=== PATIENT | male | born 1975 | race Caucasian/White ===

== ENCOUNTER 2024-07-01 02:37 | Emergency (ER) | payer SELFPAY ==
[2024-07-01 02:44] VITALS: BP 123/96
[2024-07-01 03:02] VITALS: BMI 37.6
[2024-07-01] MEDS: TORADOL 60 MG IM (04:17)
[2024-07-01] MEDS: VALIUM INJECTION 10 MG IM (04:17)
[2024-07-01 05:27] VITALS: BP 141/87
--- NOTE | 2024-07-01 05:37 | ED.GENMED ---
History of Present Illness
General
Chief Complaint: Back Pain
Source: patient
Exam Limitations: none
Time Seen by Provider: 07/01/24 04:00
Nursing documentation reviewed up to this point in time: agreed with
History of Present Illness
History of Present Illness:
This is a 48-year-old gentleman with no significant past medical history who complains of left low back pain that began 5 days ago after he inadvertently 'tweaked' his back while pulling a ladder while painting a house. He is continue to work/pain
throughout the week with increased pain throughout the week, more so tonight when he was able to lie down to bed but then could not get up out of bed resulting in a call to EMS. Paramedics were able to get him up and stand him and he has ambulated
from the ambulance to the exam room. He does admit to rare muscle spasms in his back but no history of sciatica nor disc disease. No previous evaluations of low back pain. He denies radiation of the pain, no leg pain, no weakness nor numbness, no
abdominal pain, no difficulty moving his bowels or bladder. He has been taking aspirin sporadically throughout the week. He has not had fever nor chills. No rash.
He takes no medicines on a daily basis.
Past History
Past History
ED Past Medical History: Psychiatric
ED Past Surgical History: Orthopedic (Left ankle), Tonsilectomy and Other (Hernia repair)
Social History
Tobacco: Smoker
Alcohol: Occasional
Drug: None
Personal:
Living: with family (lives with dad)
Employment: Employed (self-employed)
Family History
Family History: Other (Noncontributory)
Phy Exam
Physical Exam
Physical Exam:
GENERAL: 48-year-old quite tall gentleman appears his stated age. Standing and pacing about exam room. Pleasant and appears in no acute distress.
EYE: anicteric
NECK: Supple, nontender, no meningismus, no significant adenopathy.
ENT: oral mucosa is moist. No rhinorrhea.
CARDIAC: Regular rate and rhythm. no murmur.
LUNGS: Clear breath sounds bilaterally, no acute respiratory distress, no wheezes/rales/rhonchi
ABDOMEN: Soft, nondistended, without focal tenderness, no r/g, no cvat. normoactive BS.
BACK: No midline bony tenderness. Moderate paravertebral muscle spasm left proximal to mid lumbar spine with moderate local tenderness to palpation. Moderately restricted lumbar range of motion related to pain.
NEUROLOGICAL: Alert and oriented x3, no focal neuro deficits. Gait is beatty and steady.
SKIN: Warm and dry, normal color, skin intact. No rash.
MUSCULOSKELETAL: No C/C/E. peripheral pulses are full and equal b/l. No palpable tenderness.
PSYCH: Normal and appropriate interaction.
Course
Orders/Labs/Results
Orders:
Orders
07/01/24 04:05
Ketorolac [Toradol] 60 mg IM NOW STA
diazePAM [Valium Injection] 10 mg IM NOW STA
Vital Signs
Initial and Last Documented VS:
Initial Vital Signs
Temp Pulse Resp BP Pulse Ox
98.1 F 89 20 123/96 99
07/01/24 02:44 07/01/24 02:44 07/01/24 02:44 07/01/24 02:44 07/01/24 02:44
Last Documented Vital Signs
Temp Pulse Resp BP Pulse Ox
98.1 F 96 20 141/87 96
07/01/24 02:44 07/01/24 05:27 07/01/24 02:44 07/01/24 05:27 07/01/24 05:27
MDM/Problems Addressed
Differential Diagnosis Includes:
Patient presents with 5-day history of left low back pain, nonradiating and admits to straining injury while lifting and moving a tall ladder.
History and exam consistent with acute left lumbar sprain/strain.
No radicular signs or symptoms, no focal neurodeficits, no abdominal pain nor other associated symptoms.
He did not suffer a fall, no midline bony tenderness thus no indication for radiology studies.
Will medicate for pain and muscle spasm with Toradol and Valium. Will continue to observe.
*Pulse Oximetry
Patient hypoxic: no
*Critical Care Note
Total Time (30-74mins, 75-104mins- exclusive of procedures): Not Applicable
Update Note
Update Note:
07/01/2024 0542 AM
Patient feeling markedly improved after IM dose of Toradol and Valium. Has gotten himself dressed. Eager to be discharged to home.
He continues to have no abdominal pain, no radicular signs or symptoms, no neurodeficits.
Will discharge to home with prescription for diclofenac for pain as well as Flexeril for as needed muscle spasm.
Recommend supportive measures, local heat, avoid lifting/bending.
Prompt follow-up with PCP for recheck.
ED Attending Note
-
Portions of this chart may have been created with voice recognition software.� Occasional wrong word or��sound alike� substitutions may have occurred due to the inherent limitations of voice recognition software.
Discharge Plan
Departure
Patient Disposition: Home (Routine Discharge)
Date of Disposition: 07/01/24
Time of Disposition: 05:37
Patient with high blood pressure during this ER visit?: No
Condition: Good
Discharge Problem:
Acute left lumbar muscle strain
Instructions: Low Back Pain (DC)
Prescriptions:
New
cyclobenzaprine 10 mg tablet
10 mg PO BIDPRN PRN (Reason: muscle spasm) Qty: 20 0RF
diclofenac sodium 75 mg tablet,delayed release (DR/EC)
75 mg PO BID PRN (Reason: pain) Qty: 30 0RF
Referrals:
NONE,* [Family Provider] -
Activity Restrictions/Additional Instructions:
Over the next week or 2, take it easy. No bending at the waist, no lifting.
Apply local heat to your left low back.
You have been prescribed 2 medications, 1 is diclofenac to take twice daily as needed for pain. The other is cyclobenzaprine, a muscle relaxer to take twice daily as needed for muscle spasm. You can take both of these together but the
cyclobenzaprine may make you mildly tired.
Follow-up with your family doctor this week for recheck.
Interventions
Interventions:
*Risk Screen - Suicide Last Done: 07/01/24 02:44
*General Assessment Last Done: 07/01/24 03:03
*Neglect/Abuse Screening Last Done: 07/01/24 02:44
ED- Fall Risk Assessment Last Done: 07/01/24 02:58
*ED COVID-19 Vaccine History Last Done: 07/01/24 02:44
ED-Musculoskeletal Assessment Last Done: 07/01/24 02:58
Discharge Date and Time
Print Language: IRANIAN
== END 2024-07-01 05:50 | disposition home or self-care (01) ==
LOC: EMR 02:37
PROVIDERS: EMERGENCY PHYSICIAN Emergency Medicine
DX: S39.012A Strain of muscle, fascia and tendon of lower back, initial encounter (principal); X58.XXXA Exposure to other specified factors, initial encounter; F17.200 Nicotine dependence, unspecified, uncomplicated
CPT/HCPCS: 99283; 96372

== ENCOUNTER 2025-02-05 02:43 | Emergency (ER) | payer OTHER, SELFPAY ==
[2025-02-05 02:45] VITALS: BP 135/76
[2025-02-05 03:23] VITALS: BMI 33.1
[2025-02-05 04:33] LABS: % Basophils 0.7 % (0-2); % Eosinophils 9.6 % (0-6); % Immature Granulocytes 0.1 % (0-0.5); % Lymphocytes 35.6 % (20.5-51.1); % Monocytes 9.6 % (1.7-9.3); % Neutrophils 44.4 % (42.2-75.2); Absolute Basophils 0.1 10^3/uL (0-0.2); Absolute Eosinophils 0.7 10^3/uL (0-0.7); Absolute Lymphocytes 2.4 10^3/uL (1.2-3.4); Absolute Monocytes 0.7 10^3/uL (0.1-0.6); Hematocrit 35.2 % (39.0-52.0); Hemoglobin 11.9 g/dL (13.0-18.0); Mean Corp Hgb Conc. 33.8 g/dL (33.0-37.0); Mean Corpuscular Volume 88.7 fL (80.0-94.0); Mean Platelet Volume 10.5 fL (7.4-10.4); Nucleated Red Blood Cells % 0 % (-); Platelet Count 222 10^3/uL (130-400); Red Blood Cell Count 3.97 10^6/uL (4.70-6.10); Red Cell Dist. Width 13.8 % (11.5-14.5); White Blood Cell Count 6.8 10^3/uL (4.8-10.8)
[2025-02-05 04:56] LABS: ALT (SGPT) 52 U/L (0-50); AST (SGOT) 52 U/L (17-59); Alkaline Phosphatase 74 U/L (38-126); Blood Urea Nitrogen 26 mg/dl (9-20); Calcium 8.8 mg/dl (8.4-10.2); Carbon Dioxide 22 mmol/L (22-30); Chloride 114 mmol/L (98-107); Creatine Phosphokinase 1322 U/L (55-170); Estimated Creatinine Clearance > 125 ml/min; Glucose 95 mg/dl (70-99); Potassium 4.2 mmol/L (3.5-5.1); Sodium 143 mmol/L (135-145); Total Bilirubin 0.5 mg/dl (0.2-1.3); Total Protein 6.6 g/dl (6.3-8.2); eGFR > 60.00
[2025-02-05 05:12] LABS: Amphetamines Positive (Negative); Barbiturates Negative (Negative); Benzodiazepines Negative (Negative); Buprenorphine Negative (Negative); Cocaine Negative (Negative); Marijuana Negative (Negative); Methadone Negative (Negative); Methamphetamines Positive (Negative); Opiates Negative (Negative); Phencyclidine Negative (Negative); Tricyclic Antidepressants Negative (Negative)
--- NOTE | 2025-02-05 05:38 | ED.GENMED ---
History of Present Illness
General
Chief Complaint: Numbness
Time Seen by Provider: 02/05/25 03:23
History of Present Illness
History of Present Illness:
49-year-old male without reported past medical history presenting to the emergency department for multiple complaints. Patient reports for the past several weeks he has been having pain in his extremities, feels tightness. Also feels some
generalized weakness. He feels numbness in his heels and sometimes at his fingertips. Denies fall or trauma. 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 Denies fever. Denies back pain. Denies bowel or bladder issues. Denies
headache or visual changes. Denies drug or alcohol abuse. He came to the hospital tonight because his symptoms are worse when he is trying to sleep, has difficulty finding position of comfort. Denies additional acute medical complaints
Past History
Past History
ED Past Medical History: Psychiatric
ED Past Surgical History: Orthopedic (Left ankle), Tonsilectomy and Other (Hernia repair)
Social History
Tobacco: Smoker
Alcohol: Occasional
Drug: None
Personal:
Living: with family (lives with dad)
Employment: Employed (self-employed)
Family History
Family History: Other (Noncontributory)
Phy Exam
Physical Exam
Physical Exam:
General: No acute distress, fidgety
HEENT: protecting airway
Neck: appears supple
CV: Normal heart rate, regular rhythm
Resp: No accessory muscle use, no increased work of breathing, lungs clear to auscultation bilaterally
Abd: Soft and non-distended, no tenderness to palpation
Extremities: No deformities, no swelling, no erythema, pulses and sensation intact. Mild tenderness to palpation to the hands without deformity or swelling.
Neuro: alert, no focal neurologic deficit
: deferred
Rectal: deferred
Psych: Normal affect
Skin: Intact
Course
Orders/Labs/Results
Orders:
Orders
02/05/25 04:14
CT Head W/o Iv Contrast Urgent
Comment:
Reason For Exam: diffuse paresthesias
02/05/25 04:26
CPK [Creatine Phosphokinase] Urgent
Complete Blood Count/With Diff Urgent
Comprehensive Metabolic Panel Urgent
02/05/25 04:47
Fentanyl, Urine Urgent
Urine Drug Abuse Screen Urgent
Date Specimen was Collected: 02/05/25
Time Specimen was Collected: 04:40
Abnormal Lab Results
02/05/25 02/05/25
04:26 04:47
RBC 3.97 L 10^6/uL
(4.70-6.10)
Hgb 11.9 L g/dL
(13.0-18.0)
Hct 35.2 L %
(39.0-52.0)
MPV 10.5 H fL
(7.4-10.4)
Absolute Monos (auto) 0.7 H 10^3/uL
(0.1-0.6)
Monocytes % 9.6 H %
(1.7-9.3)
Eosinophils % 9.6 H %
(0-6)
Chloride 114 H mmol/L
(98-107)
BUN 26 H mg/dl
(9-20)
ALT 52 H U/L
(0-50)
Creatine Kinase 1322 H U/L
(55-170)
Ur Amphetamines Screen Positive H
(Negative)
U Methamphetamines Scrn Positive H
(Negative)
02/05/25 04:26
02/05/25 04:26
Vital Signs
Initial and Last Documented VS:
Initial Vital Signs
Temp Pulse Resp BP Pulse Ox
98.4 F 94 20 135/76 100
02/05/25 02:45 02/05/25 02:45 02/05/25 02:45 02/05/25 02:45 02/05/25 02:45
Last Documented Vital Signs
Temp Pulse Resp BP Pulse Ox
98.4 F 94 20 135/76 100
02/05/25 02:45 02/05/25 02:45 02/05/25 02:45 02/05/25 02:45 02/05/25 02:45
MDM/Problems Addressed
MDM/Problems Addressed:
49-year-old male without reported past medical history presenting for pain to his extremities and reported numbness provide vital signs on arrival are normal.
On exam patient is resting comfortably, no acute distress, however is very fidgety, speaking very fast with a strange affect. Patient denying any drugs or alcohol at this time. Notes that symptoms have been ongoing for several weeks. Benign
examination without any focal weakness or sensory deficits to the extremities with lower suspicion for central neurologic process. 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 Possible component of
dehydration versus rhabdo versus overuse injuries. Patient ambulated into the emergency department without any difficulty again without concern for any significant weakness or neurovascular compromise. Given reported duration of symptoms, will
screen with laboratory analysis including CPK. Will also obtain CT brain imaging. Will also send UDS with concern for possible component of drug use.
05:45 - Labs show elevated CPK consistent with mild rhabdomyolysis. Patient advised IV fluids, however adamantly declining. He is requesting oral fluids. He does not want to stay in the hospital. CT brain is negative. UDS is positive for
amphetamines and methamphetamines, consistent with my examination. Suspect that this is also contributing to the rhabdomyolysis. Patient made aware of his findings. Again advised treatment for rhabdo with fluids. Patient declining. He is
requesting to go home. Explained that without appropriate hydration and continued overuse of the muscles with amphetamine use, can compromise musculature and cause spilling of protein which can damage his kidneys. Patient verbalized understanding.
Advised close outpatient primary care follow-up. Strict return precautions communicated and patient verbalized understanding
*Pulse Oximetry
SaO2: 100
*Critical Care Note
Total Time (30-74mins, 75-104mins- exclusive of procedures): Not Applicable
ED Attending Note
-
Portions of this chart may have been created with voice recognition software.� Occasional wrong word or��sound alike� substitutions may have occurred due to the inherent limitations of voice recognition software.
Discharge Plan
Departure
Prescriptions:
No Action
No Current Medications
0
Referrals:
NONE,* [Family Provider, Internal Medicine]
Interventions
Interventions:
*Risk Screen - Suicide Last Done: 02/05/25 02:45
*General Assessment Last Done: 02/05/25 03:23
*Neglect/Abuse Screening Last Done: 02/05/25 02:45
*ED- Fall Risk Assessment Last Done: 02/05/25 03:23
*ED COVID-19 Vaccine History Last Done: 02/05/25 03:23
ED- Neurological Assessment Last Done: 02/05/25 03:23
Discharge Date and Time
Print Language: MEXICAN
[2025-02-05 05:55] LABS: Fentanyl, Urine Negative (Negative)
== END 2025-02-05 06:21 | disposition home or self-care (01) ==
LOC: EMR 02:43
PROVIDERS: EMERGENCY PHYSICIAN Student in an Organized Health Care Education/Training Program
DX: M62.82 Rhabdomyolysis (principal); F15.10 Other stimulant abuse, uncomplicated; F17.200 Nicotine dependence, unspecified, uncomplicated
CPT/HCPCS: 99284; 70450; 80053; 80306; 80307; 82550; 85025

== ENCOUNTER 2025-07-11 08:05 | Inpatient (IN) | payer OTHER, SELFPAY ==
[2025-07-11] VITALS (44 sets, daily range): BP systolic 46–157; BP diastolic 16–106; BMI 30.8
--- NOTE | 2025-07-11 05:25 | EDRN ---
Pt arrives via EMS after being found unresponsive in the shed outside for at least 4 hours. Pt is hypothermic on arrival. Generalized bruising, redness and open wounds to sternum.
0525: 20mg Etomidate and 80mg Vecuronium given IVP for intubation. Respiratory and Dr. Cutler at the bedside.
0528: PT successfully intubated with 8.0 ETT 24@lip.
0531: 16fr temperature sensing rasheed placed
[2025-07-11 05:59] LABS: Urine Character Clear (Clear)
[2025-07-11 06:10] LABS: INR 1.10; PT 14.5 Sec (11.4-14.6)
[2025-07-11 06:11] LABS: APTT 29.3 Sec (23.4-35.0); Hematocrit 57.9 % (39.0-52.0); Hemoglobin 19.0 g/dL (13.0-18.0); Mean Corp Hgb Conc. 32.8 g/dL (33.0-37.0); Mean Corpuscular Volume 89.5 fL (80.0-94.0); Platelet Count 369 10^3/uL (130-400); Red Cell Dist. Width 13.5 % (11.5-14.5)
[2025-07-11 06:23] LABS: Blood Urea Nitrogen 22 mg/dl (9-20); Calcium 9.1 mg/dl (8.4-10.2); Carbon Dioxide 8 mmol/L (22-30); Chloride 98 mmol/L (98-107); Glucose 142 mg/dl (70-99); Magnesium 3.5 mg/dl (1.6-2.3); Sodium 140 mmol/L (135-145)
[2025-07-11 06:28] LABS: Troponin I 3.300 ng/ml
[2025-07-11 06:32] LABS: B.E. -21.2 mmol/L; O2 Saturation % 100.0 % (94-98); PCO2 50 mmHg (35-48); PO2 442 mmHg (83-108)
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
[2025-07-11] MEDS: LEVOPHED 250 IV ×2 (06:41→11:17)
[2025-07-11] MEDS: NSS 1000 IV ×2 (06:43→10:32)
[2025-07-11 06:44] LABS: HCO3 11.2 mmol/L (21-28)
[2025-07-11 06:46] LABS: eGFR 19.71
[2025-07-11 07:09] LABS: Nucleated Red Blood Cells % 0.1 % (-)
--- NOTE | 2025-07-11 07:13 | EDRN ---
This RN gave report to Coleen IRAHETA. Pt currently on 25mcg Levophed hand off assessment with Coleen IRAHETA, intubated, fluids infusing with ranger and by pressure bag to femoral central line. This RN asked provider Omayra about Propofol, provider
states to NOT start sedation at this time. MAP has improved significantly with Levophed. Pt still unresponsive to painful stimuli at this time without sedation. Jaswant greenwood applied on medium, EKG completed. NSR/ST.
[2025-07-11] MEDS: ZOSYN 100 IV (07:18)
--- NOTE | 2025-07-11 07:57 | HPS.HSE ---
Addendum entered and electronically signed by Sumit Davidson MD, Resident 07/11/25 10:08:
Spoke with the ICU nurse, patient has right shoulder dislocation with no pulse on right. I consulted vascular surgeon, Dr Cannon who recommended stat CTA right upper extremity, central office repairer aware. Both agree proceeding with CTA regardless of
creatinine 3.3 as at this point benefit is greater than the risk.
Original Note:
Family Physician
-
Family Physician: INTERVIEWE UNKNOWN - PT NOT
Chief Complaint
-
Unresponsiveness
History of Present Illness
49-year-old male with limited history presented to the ED unresponsive. The history was obtained on talking to the ER physician, when they called his parents. Patient has a long history of drug abuse. Patient was found outside by his father in an
outside born confused and not responsive last night at 11:30 PM. He does have evidence of soot in his nostrils. He was cold and clammy. Patient has a history of methamphetamine abuse. They tried to reset resuscitate him but failed. Patient
continued to be confused until 4 AM when parents decided to call the ambulance. The first ambulance that came in because stock in a pothole/mud and they had to Call the second ambulance for transfer. He was not intubated in the first ambulance.
When he got transferred to the second ambulance he was given a bolus of IV fluids. The efficiency clerk were also there. Upon arrival to the ED he was intubated with an 8-0 tube and was put in a [place] to warm his fluids, he also received a [place] hugger. On
arrival MAP was 59, central line was placed and Levophed was started. He has received 3 L of warm fluids, maxed out on Levophed, additional pressor IV phenylephrine is started. He now has blood pressure of 96/41 with MAP 69, tachycardic. He
has a white count of 46,900 with no obvious source, lactic acidosis 14.7, troponin 3.300, significant elevation of creatinine kinase >201260. ABG showing anion gap metabolic acidosis. Urine output 100 to 200 cc.
Medical History
Past Medical History
Past Medical History: Reports Other (Methamphetamine use)
Past Surgical History: Reports Other
Social History
Unable to obtain full social history at this time due to: Patient Intubation
Family History
Family History: Not pertinent
Allergies / Home Medications
Allergies reflects when Allergies were last updated in [facility].
Home Medications with original date entered in [facility]
Allergy/Medication List:
Allergies
Allergy/AdvReac Type Severity Reaction Status Date / Time
No Known Allergies Allergy Verified 02/05/25 03:25
Review of Systems
-
Unable to obtain full review of systems at this time due to: Patient Intubation
Physical Exam
Vital Signs
Vital Signs
Temp Pulse Resp BP Pulse Ox
36.7 F L 95 17 111/53 100
07/11/25 06:50 07/11/25 07:20 07/11/25 07:20 07/11/25 07:20 07/11/25 06:57
Physical Exam
General: Intubated
HEENT: Other (Evidence of soot in both nostrils)
Respiratory: Rhonchi and Other (abdominal breathing )
Cardiac: S1/S2
Genito-urinary: Other (Schultz catheter with 100 cc of yellow-colored urine)
Skin: Other (cool, dry skin, 6 x 3 cm first/second-degree burn on anterior chest sternal area, central line left femoral)
Neuro: Other (Patient is unresponsive)
Laboratory Results
-
07/11/25 05:38
Laboratory Results
PT 14.5 Sec (11.4-14.6) 07/11/25 05:38
INR 1.10 07/11/25 05:38
APTT 29.3 Sec (23.4-35.0) 07/11/25 05:38
pH 6.96 (7.35-7.45) L* 07/11/25 06:19
pCO2 50 mmHg (35-48) H 07/11/25 06:19
pO2 442 mmHg (83-108) H 07/11/25 06:19
HCO3 11.2 mmol/L (21-28) L* 07/11/25 06:19
Lactic Acid 14.7 mmol/L (0.7-2.0) H* 07/11/25 05:38
Total Bilirubin Cancelled 07/11/25 05:38
AST Cancelled 07/11/25 05:38
ALT Cancelled 07/11/25 05:38
Alkaline Phosphatase Cancelled 07/11/25 05:38
Troponin I 3.300 ng/ml H* 07/11/25 05:42
Data Reviewed
-
Diagnostic Radiology: Report Reviewed by me and Discussed with Physician
CT Scan: Report Reviewed by me and Discussed with Physician
Medical Tests (Nuc Med, Echo, EKG etc): Report Reviewed by me and Discussed with Physician
Lab Data: Labs Reviewed by me and Discussed with Physician
Impression/Plan
-
IMPRESSION:
Coma/Unresponsiveness
Hypotension
Hypothermia
Lactic acidosis
Leukocytosis
Elevated troponin
Acute kidney injury
Anion gap metabolic acidosis
Rhabdomyolysis
History of methamphetamine use
PLAN:
Coma/unresponsiveness
Hypotension, hypothermia
Downtime per story more than 4 hours of unresponsiveness
Suspect drug overuse, septic shock/cardiogenic shock/hypovolemic shock
EKG shows no ischemic changes, presence of septal infarct, no prior EKGs to compare
Patient intubated in the ED
Hypotensive, hypothermic
MAP 69 on IV Levophed and IV phenylephrine. Start vasopressin
Sedated- propofol and fentanyl
Received 3 L of warm fluids in ED
Continue ventilatory support
Continue pressors. Continue IV fluids. Start IV Zosyn
Keep MAP above 65. Monitor urine output. Await blood cultures
Toxicology screen positive for methamphetamine
Consult central office repairer and shearing shed hand
Aspiration precaution, suction.
Hypothermia
Montez hugger, IV warm fluid
Monitor temperature
Lactic acidosis
Lactic acid 14.7
Trend lactate
Await blood cultures
Leukocytosis
White count 46,900, no obvious source
Await blood cultures
Elevated troponin
Troponin 3.300
EKG shows no ischemic changes, presence of septal infarct, no prior EKGs to compare
Trend troponin
Acute kidney injury /Rhabdomyolysis
Anion gap metabolic acidosis
Consult nephrology
Continue fluid resuscitation
Maintain Schultz
Potassium is pending, repeat potassium stat
Significant elevated CPK, repeat
History of methamphetamine abuse
Full code
IV heparin
CT scan head reveals intracerebral venous thrombosis, no acute intracranial hemorrhage.
CT abdomen/pelvis
IMPRESSION:
CHEST:
1. Endotracheal tube in place.
2. Mild subsegmental atelectasis in the right middle and lower lobes.
3. Severe bilateral gynecomastia.
4. Severe discogenic degenerative disease at C6/C7.
5. Chronic superior endplate compression fracture of T8.
ABDOMEN and PELVIS:
1. Mild periduodenal inflammation (possibly peptic ulcer disease).
2. Severe diffuse hepatic steatosis.
3. Large amount of fecal material in the rectum.
4. Schultz catheter in the urinary bladder.
5. Mild to moderate multilevel lumbar discogenic degenerative disease.
--- NOTE | 2025-07-11 07:59 | W.PN.UPDATE ---
Addendum entered and electronically signed by Nithya Sánchez MD 07/11/25 14:15:
Addendum
Patient was noted to have diminished/lack of pulse in the right upper extremity. Stat consult for vascular surgery, patient is likely developing compartment syndrome, recommended surgery / ortho evaluation . Patient was seen by Ortho Dr. Lo
and DR Carmichael, both recommended transfer to tertiary care center.
I called [facility] transfer [facility] and spoke with Dr. Johnson, ICU doctor teacher adventure education. Also included Vascular surgeon on-call at [facility], she recommended to discuss with trauma or hand surgery to do fasciotomy. We are in process to talk to either service to
accept the patient.
Dr. Colin is helping with transfer, appreciate help
End
Addendum entered and electronically signed by Nithya Sánchez MD 07/11/25 08:17:
Addendum
Acute hypoxic respiratory failure
Continue vent support. Repeat ABG after intubation
Will discuss with ICU doctor, appreciate help
End
Original Note:
Update Note
Progress Note Update
I interviewed and examined the patient. Discussed with Dr. Davidson and agree with findings and plan as documented in note.
Admission note
History is taken directly from the ER physician Dr. Cutler. Patient is unresponsive and parents on their way to the hospital. ER doctor spoke directly with parents over the phone.
49 years old male who has history of drug abuse and last rehab within a year was acting weird in the last week. He was sleeping a lot. He was missing yesterday to his parents but they noticed light in the barn around 1130. They went to check and
they found him on the floor unresponsive/confused/acting weird. Per parents, they tried to resuscitate him/unknown what they did exactly and they could not relay what they did to the ER doctor. Around 4 AM, they called 911. Ambulance and police
arrived to the scene. The first ambulance arrived with personnels but they could not transport the patient's car was stuck in the mud. It seemed that [facility] ambulance waited an hour or so, no resuscitative measures were were done. No intubation.
Second ambulance arrived and took the patient, no intubation in field, second ambulance gave 400 cc of IV fluid while transporting the patient to the emergency room. Patient arrived after 5 AM. ER doctor immediately intubated the patient and
started the patient on pressure support as patient was unresponsive/hypotensive/hypothermic. Patient was noted to have soot in both nostrils with burn area on his front chest. Police was suspecting a meth lab in the barn.
Physical Exam
General: Patient is not responsive/intubated
HEENT: Patient has endotracheal tube. Soot noted in both nostrils
Heart:Normal heart rate, regular rhythm
Lungs : Bilateral rales
Abd: Soft and non-distended
: Schultz catheter with 100 cc of yellow-colored urine
Extremities: No deformities, no swelling, no erythema.
Neuro: Patient is not responsive
Psych: Unable to assess due to unresponsiveness
Skin: 6 x 3 cm first/second-degree burn on anterior chest sternal area
A/P:
# Coma/unresponsiveness
Downtime so far per story we have more than [address] head is noted.
No evidence of acute intracranial hemorrhage or infarct./Possible intracerebral venous thrombosis
Urine drug screen is positive for methamphetamines with history of polysubstance abuse
Protective airway with intubation
Supportive care with pressure support
Prognosis is guarded due to prolonged unresponsiveness/down time
Follow-up with ICU doctor and neurology recommendations
# Hypotension, suspect combination of drug Overdose/cannot rule out possibility of cardiogenic shock/hypovolemic shock/septic shock
Patient has evidence of positive troponin, leukocytosis, hypothermia, tachycardia
EKG no acute ischemic changes continue with the pressure support, patient maximized on Levophed, will start Lincoln-Synephrine
Input output
IV fluid resuscitation
Maintain Schultz catheter
# Positive troponin, likely nonischemic myocardial injury secondary to drug overdose/hypotension
No history of heart disease. Patient does not take prescription medications. History of drug abuse.
Will do echocardiogram. Trend troponin. Will hold off on systemic anticoagulation until further results
# leukocytosis with lactic acidosis, suspect combination of reactive/septic shock, cannot rule out left aspiration event due to prolonged unresponsiveness/coma
Continue with empiric antibiotic. Blood culture. Sputum culture if possible
Pressure support
Trend lactate
# Acute kidney injury/ severe metabolic acidosis due to combination of respiratory acidosis and metabolic acidosis/renal failure/rhabdomyolysis/drug abuse.
Severe hypotension. Systolic blood pressure upon arrival around 50
Continue fluid resuscitation. Maintain Schultz. Sodium bicarbonate for acidosis. ABG is noted. Continue ventilatory support. Potassium has not resulted. Stat recheck. EKG is not showing acute hyperkalemic changes
Will discuss with nephrology
# history of drug abuse noted.
# Acute traumatic rhabdomyolysis secondary to drug abuse
# DVT and GI prophylaxis. Add IV PPI/heparin.
Further management pending results
Total critical time spent to see the patient, examine the patient, review data and lab results, discuss treatment plan with patient, ER doctor, consultants, nursing staff around 75 minutes�
--- NOTE | 2025-07-11 08:14 | PHANOTE ---
med rec note- patient has no current ecw, last appointment 2019 does mention Adderall 30mg take 2 at noon, Advair, Ambien 5mg hs prn, ADDERALL ER 20MG DAILY, clonazepam 2mg as directed, hydrocodone/acetaminophen 5/535mg as directed, Wellbutrin sr
100mg daily not nothing found in dr seymour or pharmacy fills, ecw does mention he goes to [facility] but those pharmacist went out of bunisess, also nothing in PDMP for the last 7 years
[2025-07-11] MEDS: NEO-SYNEPHRINE 250 IV (08:19)
[2025-07-11] MEDS: SODIUM BICARBONATE 50 MEQ IV ×2 (08:20→17:22)
[2025-07-11] MEDS: DEXTROSE 50% SYRINGE 25 GRAMS IV ×2 (08:20→17:21)
[2025-07-11] MEDS: CALCIUM GLUCONATE 1000 MG IV ×2 (08:20→17:22)
[2025-07-11] MEDS: NOVOLIN R 10 UNITS IV ×2 (08:21→17:24)
[2025-07-11 08:28] LABS: Acetaminophen < 10 ug/ml (10-30); Salicylate < 1.0 mg/dl (2.0-20.0)
[2025-07-11] MEDS: DIPRIVAN 100 IV (08:42)
[2025-07-11] MEDS: SUBLIMAZE 100 MCG IV (08:56)
[2025-07-11 09:28] LABS: Glucose - Point of Care 417 mg/dl (70-99)
[2025-07-11 09:38] LABS: Hematocrit 56.0 % (39.0-52.0); Hemoglobin 19.5 g/dL (13.0-18.0); Mean Corp Hgb Conc. 34.8 g/dL (33.0-37.0); Mean Corpuscular Volume 85.2 fL (80.0-94.0); Platelet Count 306 10^3/uL (130-400); Red Cell Dist. Width 14.3 % (11.5-14.5)
[2025-07-11 09:53] LABS: Triglycerides 454 mg/dl (10-149)
[2025-07-11 10:24] LABS: Glucose - Point of Care 232 mg/dl (70-99)
--- NOTE | 2025-07-11 10:25 | W.CON.NEPH ---
Consultation
-
Date/Time Consultation Requested: 07/11/2025 9:30 AM
Date/Time Consultation Performed: 07/11/2025 10:15 AM
Requesting Provider: Dr. Davidson
Performing Provider: Dr. Chapman
Reason for Consultation: Acute kidney injury/metabolic acidosis
Medical History
-
Chief Complaint: Acute kidney injury/metabolic acidosis/rhabdomyolysis
History of Present Illness:
49-year-old male with limited history presented to the ED unresponsive. The history was obtained on talking to the ER physician, when they called his parents. Patient has a long history of drug abuse. Patient was found outside by his father in an
outside born confused and not responsive last night at 11:30 PM. He does have evidence of soot in his nostrils. He was cold and clammy. Patient has a history of methamphetamine abuse. They tried to resuscitate him but failed. Patient continued
to be confused until 4 AM when parents decided to call the ambulance. The first ambulance that came was delayed due to pothole/mud and they had to call the second ambulance for transfer. When he got transferred to the second ambulance he was
given a bolus of IV fluids. Upon arrival to the ED he was intubated with an 8-0 tube and was put in a [place] to warm his fluids, he also received a Bear hugger. On arrival MAP was 59, central line was placed and Levophed was started. He has
received 3 L of warm fluids, maxed out on Levophed, with additional pressor IV phenylephrine started. He now has blood pressure of 96/41 with MAP 69, tachycardic. He has a white count of 46,900 with no obvious source, lactic acidosis 14.7,
troponin 3.300, significant elevation of creatinine kinase >149192. ABG obtained on arrival to the emergency room noted profound metabolic acidosis predominantly with associated respiratory acidosis with a serum pH of 6.96 and a serum bicarb of 8.
He is in renal failure with a creatinine of 3.6 off his previous baseline of 0.8 noted on 02/05/2025 and nephrology was asked to see this critically ill patient.
Past Medical History
(Methamphetamine use)
Social History
Alcohol: Occasional
Drug: Other (Methamphetamine)
Family History
Father with history of end-stage renal disease and renal transplant
Allergies / Home Medications
Allergy/AdvReac Type Severity Reaction Status Date / Time
No Known Allergies Allergy Verified 02/05/25 03:25
Review of Systems
-
Unable to obtain full review of systems at this time due to: Patient Intubation
History Source: Patient
All other systems: Negative unless noted
Skin: Other (Ford along chest EXTR)
Physical Exam
Vital Signs
Vital Signs
Temp Pulse Resp BP Pulse Ox
36.7 F L 95 32 122/46 100
07/11/25 06:50 07/11/25 08:40 07/11/25 08:40 07/11/25 08:40 07/11/25 06:57
Lab Results
07/11/25 09:28
07/11/25 09:28
WBC 49.6 10^3/uL (4.8-10.8) H* 07/11/25 09:28
RBC 6.57 10^6/uL (4.70-6.10) H 07/11/25 09:28
Hgb 19.5 g/dL (13.0-18.0) H 07/11/25 09:28
Hct 56.0 % (39.0-52.0) H 07/11/25 09:28
Plt Count 306 10^3/uL (130-400) 07/11/25 09:28
Sodium 140 mmol/L (135-145) 07/11/25 05:38
Potassium Cancelled 07/11/25 09:28
Chloride 98 mmol/L (98-107) 07/11/25 05:38
Carbon Dioxide 8 mmol/L (22-30) L* 07/11/25 05:38
BUN 22 mg/dl (9-20) H 07/11/25 05:38
Creatinine 3.6 mg/dL (0.7-1.3) H 07/11/25 05:38
eGFR 19.71 07/11/25 05:38
Glucose 142 mg/dl (70-99) H 07/11/25 05:38
Calcium 9.1 mg/dl (8.4-10.2) 07/11/25 05:38
Albumin Cancelled 07/11/25 05:38
Physical Exam
General: Intubated nonresponsive
HEENT: ET tube down oropharyngeal airway, right periorbital ecchymosis
Neck Supple, Neck: Trachea Midline, No JVD and No Thyromegaly, no Bruits
Respiratory: Coarse to auscultation bilaterally with normal mechanical lung excursion
Chest wall: Ford across sternum
Cardiac: S1/S2 and Regular Rate/Rhythm
Breast: Deferred by me
Abdomen: Soft, Nontender, Nondistended, Normal Bowel Sounds and No Hepatosplenomegaly
Rectal: Deferred by Provider
Genito-urinary: rasheed catheter
Extremities: No Clubbing, No Cyanosis and No Edema
Skin: dry skin, 6 x 3 cm first/second-degree burn on anterior chest sternal area, central line left femoral)
Neuro: Nonfocal/Grossly Intact, CN II-XII (Intact) and Strength (Musculoskeletal exam 5 out of 5 both upper and lower extremities)
Hematologic/Lymphatic: No Cervical Lymphadenopathy, No Submandibular Lymphadenopathy and No Supraclavicular Lymphadenopathy
Psych: Unobtainable as patient intubated and poorly respond
Vascular: Right vascular femoral, right upper extremity with no palpable pulse and mottling of hand
Data Reviewed
-
CT Scan: Report Reviewed by me (CT of abdomen and pelvis reviewed with IV contrast: No obstructive uropathy severe fatty liver disease)
Labs: Labs Reviewed by me (BMP CBC UA CPK)
Old Records: Reviewed (Reviewed previous labs from January 2025 creatinine 0.8)
Assessment/Plan
-
Impression:
JH
Gapped metabolic acidosis (lactic acid ~15)
Rhabdomyolysis
Found down unresponsive/Hypothermic/suspected drug overdose
Hemodynamic instability
History of methamphetamine abuse (methamphetamine on urine tox screen)
Intracerebral venous thrombosis by CT
Plan:
JH:
- Likely due to evolving rhabdomyolysis in setting of shock with hemodynamic instability and subsequent prerenal injury
- Maintain MAP 65 or greater with aggressive IV fluids and pressor support (Levophed , vasopressin and Lincoln-Synephrine)
-Will change IV fluids to alkalized and increase rate to 200cc per/hr
- Will monitor closely for possible dialysis requirement given IV contrast administration, evolving rhabdomyolysis, and hemodynamic instability
-Broad-spectrum antibiotics renally dosed
- Patient may require CRRT given hemodynamic instability, multiple contrast load administration, hypotension, and evolving rhabdomyolysis
-Repeat BMP later this afternoon
- Patient critically ill with sepsis with subsequent pressor dependent shock, vent dependent respiratory failure and evolving renal failure
- 45 minutes critical care time spent with
Total Time Spent with Patient (in minutes): 45 minutes
--- NOTE | 2025-07-11 10:31 | CON.VAS ---
Consultation
Consultation Request
Date/Time Consultation Performed: 07/11/25 12:50
Performing Provider: Davis
Reason for Consultation: Right upper extremity with no pulses
Medical History
-
Chief Complaint: Unresponsive
History of Present Illness:
Asked to evaluate due to absent right upper extremity pulses. Complex situation. Patient is a 49-year-old male who was admitted after being found unresponsive. Was found by his parents. Long history of drug abuse. Was cold and clammy. History
of methamphetamine abuse. Critically ill in the ICU currently intubated with a white blood cell count of 46,000, lactic acid 14.7, troponin 3.3. CK is greater than 120,000.
On exam/he is intubated, sedated. Left upper extremity is soft in the arm and forearm. Hand is reasonably warm. Doppler signals. On the right side the arm is fairly tense from the shoulder all the way down. Hand is
CT scan reviewed. No formal cutoff of the artery, but slowly tapered diminutive flow in the proximal brachial artery. There is 1 segment in the axillary artery that appears to taper and then there is patent flow again in the brachial artery and
then it tapers again. The muscle compartments all appear fairly edematous.
Past Medical History
Past Medical History: Other (Could not obtain patient unresponsive)
Past Surgical History: Other (Could not obtain patient unresponsive)
Social History
Drug: Other (Methamphetamine)
Living: With Family
Employment: Employed
Family History
Family History: Unable to Obtain
Allergies / Home Medications
Allergy/AdvReac Type Severity Reaction Status Date / Time
No Known Allergies Allergy Verified 02/05/25 03:25
Review of Systems
-
Unable to obtain full review of systems at this time due to: Patient Intubation
Physical Exam
Vital Signs
Temp Pulse Resp BP Pulse Ox
36.7 F L 95 32 122/46 100
07/11/25 06:50 07/11/25 08:40 07/11/25 08:40 07/11/25 08:40 07/11/25 06:57
Lab Results
07/11/25 09:28
07/11/25 09:28
Troponin I 3.300 ng/ml H* 07/11/25 05:42
Physical Exam
General: Intubated
HEENT: Normocephalic
Respiratory: Other (Intubated ventilated)
Cardiac: Negative JVD
GI: Soft
Musculoskeletal: Cyanosis (Bilateral feet and right hand) and Edema (Right arm)
Skin: Other (Cool, pale. Right upper extremity tense, hand congested purple appearing, phlegmasia type. Nonpalpable pulses throughout the upper extremity. Unable to get Doppler signals.)
Neuro: Other (Unresponsive)
Pulses: Bilateral Femoral: +1, Left Posterior Tibial: Doppler (Faint) and Right Posterior Tibial: Doppler (Faint)
Assessment / Plan
-
Plan/ I think the patient has right upper extremity compartment syndrome with phlegmasia. Discussed with the ICU team. I would recommend urgent orthopedic consultation for possible fasciotomies of the right upper extremity to relieve compartment
syndrome. If upon fasciotomies, the arterial flow is still compromised, I can then perform angiography and/or revascularize as needed. Given the patient's metabolic derangements, elevated lactate, elevated CK, it certainly is not out of the realm
that he has dying or muscle. His limb may not be salvageable. His prognosis is very guarded at best. Likely has rhabdomyolysis secondary to this process as well as his renal function is diminished.
Data Reviewed
-
CT Scan: Discussed with Physician
Labs: Discussed with Physician
[2025-07-11] MEDS: HEPARIN 25000 UNITS/250 ML IV (10:33)
[2025-07-11 10:38] LABS: B.E. -15.1 mmol/L; O2 Saturation % 100.0 % (94-98); PCO2 32 mmHg (35-48); PO2 222 mmHg (83-108)
--- NOTE | 2025-07-11 10:38 | OR.RPT ---
Operative Report
Operative Report
Seen and examined with TRACIE Davis. See full consultation note. Asked to evaluate due to absent right upper extremity pulses. Complex situation. Patient is a 49-year-old male who was admitted after being found unresponsive. Was found by his
parents. Long history of drug abuse. Was cold and clammy. History of methamphetamine abuse. Critically ill in the ICU currently intubated with a white blood cell count of 46,000, lactic acid 14.7, troponin 3.3. CK is greater than 120,000.
On exam/he is intubated, sedated. Left upper extremity is soft in the arm and forearm. Hand is reasonably warm. Doppler signals. On the right side the arm is fairly tense from the shoulder all the way down. Hand is congested purple appearing,
phlegmasia type. Nonpalpable pulses throughout the upper extremity. Unable to get Doppler signals.
CT scan reviewed. No formal cutoff of the artery, but slowly tapered diminutive flow in the proximal brachial artery. There is 1 segment in the axillary artery that appears to taper and then there is patent flow again in the brachial artery and
then it tapers again. The muscle compartments all appear fairly edematous.
Plan/ I think the patient has right upper extremity compartment syndrome with phlegmasia. Discussed with the ICU team. I would recommend urgent orthopedic consultation for possible fasciotomies of the right upper extremity to relieve compartment
syndrome. If upon fasciotomies, the arterial flow is still compromised, I can then perform angiography and/or revascularize as needed. Given the patient's metabolic derangements, elevated lactate, elevated CK, it certainly is not out of the realm
that he has dying or muscle. His limb may not be salvageable. His prognosis is very guarded at best. Likely has rhabdomyolysis secondary to this process as well as his renal function is diminished.
[2025-07-11 10:42] LABS: Carboxyhemoglobin 1.7 %
[2025-07-11 10:46] LABS: HCO3 11.9 mmol/L (21-28)
[2025-07-11 10:55] LABS: Ammonia 23 umol/L (9-30)
[2025-07-11] MEDS: SUBLIMAZE 50 MCG IV ×2 (11:07→14:01)
[2025-07-11 11:17] LABS: B.E. - POC -15.9 mmol/L; Blood Urea Nitrogen - POC 31 mg/dl (3-120); Chloride - POC 105 mmol/L (96-111); Creatinine - POC 4.82 mg/dl (0.3-1.0); Glucose - POC 170 mg/dl (70-99); HCO3 - POC 18 mmol/L (21-28); Hematocrit - POC 63 % PCV (42-52); Hemodilution- POC No; Hemoglobin Calculated - POC 21.6; Ionized Calcium - POC 0.90 mmol/L (1.15-1.33); Lactate - POC 11.46 mmol/L (0.36-0.75); O2 Saturation %Calculated-POC 23.7 % (94-98); PCO2 - POC 73 mmHg (35-48); PO2 - POC 26 mmHg (83-108); Potassium - POC 7.5 mmol/L (3.5-5.1); Sodium - POC 132 mmol/L (136-145); Specimen Type - POC Venous; pH - POC 6.99 (7.35-7.45)
[2025-07-11 11:27] LABS: Methemoglobin 1.1 % (0.5-1.5)
[2025-07-11] MEDS: SODIUM BICARBONATE 1150 MEQ IV ×2 (11:49→16:55)
[2025-07-11] MEDS: PROTONIX IV 40 MG IV (12:11)
[2025-07-11] MEDS: NSS (PRESERVATIVE FREE) 10 ML IV (12:12)
--- NOTE | 2025-07-11 12:31 | CON.INTV ---
Consultation
Consultation Request
Date/Time Consultation Requested: 07/11
Date/Time Consultation Performed: 07/11
Requesting Provider: Dr. Cutler
Performing Provider: Dr. Garnett; Dr. Colin
Medical History
-
Chief Complaint: Unresponsiveness
History of Present Illness:
Patient is a 49-year-old male with history of methamphetamine abuse who is being upgraded to the ICU after being found unresponsive. Patient was reportedly found confused and unresponsive in outside barn by his father around 11:30 PM last night.
Patient was cold, clammy, and answered around his nostrils. Father tried to resuscitate him for approximately 4 hours before calling EMS around 4 AM. Patient's parent's last saw him >24 hours prior to the episode, thus patient downtime is unknown.
EMS administered an epinephrine prior and a bolus of normal saline. In the ED, patient was intubated mechanically ventilated. He was also put in a Lawn and Montez hugger. In the ED, patient was hypotensive, necessitating administration of
Levophed and phenylephrine. He received 3 L of warmed fluids in the ED. Labs were remarkable for leukocytosis to 46,900 with left shift, lactate 14.7, CK >128,000, creatinine 3.6 (baseline 0.8 in January 2025), HCO3 8, chloride 98, and troponin 3.3.
Anion gap 34. Toxicology screen positive for methamphetamine. In the ICU, patient continues to be sedated on propofol drip, intubated, and mechanically ventilated. He is currently on norepinephrine and phenylephrine drips.
Past Medical History
Past Medical History: None
Past Surgical History: None
Social History
Drug: Other (Methamphetamine)
Allergies / Home Medications
Allergies
Allergy/AdvReac Type Severity Reaction Status Date / Time
No Known Allergies Allergy Verified 02/05/25 03:25
Review of Systems
-
Unable to Obtain full review of systems at this time due to: Patient Intubation
Vitals / Labs / Diagnostic Testing
Vital Signs
Temp Pulse Resp BP Pulse Ox
100.4 F H 95 32 122/46 100
07/11/25 11:10 07/11/25 08:40 07/11/25 08:40 07/11/25 08:40 07/11/25 06:57
Lab Data
07/11/25 09:28
Laboratory Results
07/11/25 07/11/25 07/11/25
05:38 06:19 10:25
PT 14.5
INR 1.10
APTT 29.3
pH 6.96 L* 7.18 L*
pCO2 50 H 32 L
pO2 442 H 222 H
HCO3 11.2 L* 11.9 L*
O2 Delivery Level
Diagnostic Testing:
Physical Exam
-
Exam:
General: Sedated, intubated, mechanically ventilated while lying in bed.
CV: Mildly tachycardic. Regular rhythm. No M/R/G. RUE cool, cyanotic, mildly swollen, without palpable pulses. LUE cool, though noncyanotic, nonedematous, and radial pulses present. DPs and TPs nonpalpable in bilateral lower extremities.
Bilateral lower extremities cool to the touch, mottled, cyanotic.
Pulm: CTAB. Intubated and mechanically ventilated. Good chest excursion.
GI: Soft, nondistended.
: Schultz producing clear dark yellow urine.
Integ: Erythema on right chest wall extending onto the right shoulder and upper arm. Superficial skin breakdown over sternum. Scattered ecchymoses.
Neuro: Sedated.
Assessment
-
Assessment: Patient is a 49-year-old male with PMH of methamphetamine abuse who is being upgraded to the ICU for severe metabolic acidosis, rhabdomyolysis, shock, JH, cerebral venous thrombosis, encephalopathy, and possible toxin exposure after
being found unresponsive in a barn overnight. Patient was down for an unknown amount of time before being found by family. On presentation, patient was noted to have slight in his nostrils and has erythema with mild blistering on his right chest
wall extending into his right shoulder and upper arm. Patient is currently sedated, intubated, mechanically ventilated and requiring blood pressure support with multiple vasopressors. Labs are remarkable for the following: WBCs 46.9 with left
shift, lactate 14.7, CK1 128,000, Troponin 3.3, creatinine 3.6, HCO3 8. Blood gas this morning showed the following: pH 6.96, bicarb 11.2, pCO2 50, pO2 442. UDS positive for methamphetamine. CT head showed findings suggestive of right sided
cerebral vein thrombosis. In the ICU, patient found to have cool, cyanotic, mildly edematous RUE with nonpalpable radial or brachial pulses. Bilateral lower extremities are mildly cyanotic and cool with nonpalpable pulses, though Doppler pulses
were obtained. Suspect toxin exposure to resulted in shock and collapse, which then resulted in an extended period of immobility and subsequent rhabdomyolysis. Suspect JH 2/2 shock and/or rhabdomyolysis. Suspect metabolic acidosis 2/2 toxin
exposure, shock, and JH. Suspect cerebral vein thrombosis 2/2 dehydration and/or inflammatory state after collapse. Suspect encephalopathy 2/2 metabolic acidosis. Suspect compartment syndrome in RUE 2/2 unresponsive state with immobility of
unknown duration.
Plan:
#Severe metabolic acidosis
#Rhabdomyolysis
#Shock
#Possible septic shock
#JH
Pressors: Norepinephrine, phenylephrine
Sedation, pain control: Propofol, fentanyl
Intubation, mechanical ventilation
Aggressive IVF resuscitation: Sodium bicarb 200 mL/h
Antibiotics: Zosyn
Trend lactate, CBC, BMP
Per nephrology, possible CRRT tomorrow
#Cerebral vein thrombosis
#Encephalopathy
Continue heparin
CT head: Findings suggestive of intracerebral venous thrombosis; no evidence of acute intracranial hemorrhage or transcortical infarct
CT venogram pending
Neurology following
#Suspected compartment syndrome in RUE
#Vasoplegia 2/2 multiorgan dysfunction
RUE angiography: Multifocal areas of severe narrowing involving the right brachial artery and axillary branch; nonopacification of arteries below right elbow; these findings are suggestive of severe vasospasm
RUE is cool, cyanotic, mildly edematous, and without palpable right radial pulses
RUE likely requires emergent fasciotomy, necessitating transfer to [facility] for surgery
Decreased pulses in other extremities likely 2/2 vasoplegia, which will be treated by dressing the underlying systemic insults, including metabolic acidosis, rhabdomyolysis, shock
Orthopedics, vascular following
#Possible toxin exposure
Patient has history of amphetamine abuse, and there is reportedly risk of chemical exposure at site where patient was found unresponsive
Carboxyhemoglobin level 1.7, indicating unlikely exposure
Methemoglobin level pending
GI PPx: Pantoprazole 40 mg IV daily
DVT PPx: Heparin
[2025-07-11 12:39] LABS: Glucose - Point of Care 148 mg/dl (70-99)
[2025-07-11] MEDS: LEVOPHED 258 MG IV ×2 (12:44→16:44)
[2025-07-11] MEDS: NEO-SYNEPHRINE 1% 260 MG IV (12:45)
--- NOTE | 2025-07-11 13:20 | PTCARENOTE ---
Dr Carmichael at bedside.
--- NOTE | 2025-07-11 13:43 | CON.GS ---
Consultation
-
Date/Time Consultation Performed: 07/11/25
Requesting Provider: Cristi
Performing Provider: Amol
Reason for Consultation: RUE compartment syndrome
Medical History
-
Chief Complaint: intubated/sedated
History of Present Illness:
GS consult placed to eval for RUE compartment syndrome. Pt intubated and sedate, history obtained from chart. Reportedly a 49M found down and unresponsive. Hx of IVDU. Vascular Surgery and Orthopedic Surgery seen and transfer was recommended. Pt
does not participate in encounter.
Allergies / Home Medications
Allergy/AdvReac Type Severity Reaction Status Date / Time
No Known Allergies Allergy Verified 02/05/25 03:25
�Medication �Instructions �Recorded �Confirmed �Type
No Meds [No Current Medications] 07/11/25 07/11/25 History
Review of Systems
-
Unable to obtain full review of systems at this time due to: Acuity and Patient Intubation
Physical Exam
Vital Signs
Temp Pulse Resp BP Pulse Ox
100.4 F H 106 36 96/51 78
07/11/25 11:10 07/11/25 12:45 07/11/25 12:45 07/11/25 12:02 07/11/25 12:15
07/10/25 07/11/25 07/12/25
06:59 06:59 06:59
Actual Weight 103 kg 103 kg
Body Mass Index (BMI) 30.8
Lab Results
07/11/25 09:28
07/11/25 12:45
WBC 49.6 10^3/uL (4.8-10.8) H* 07/11/25 09:28
Hgb 19.5 g/dL (13.0-18.0) H 07/11/25 09:28
Hct 56.0 % (39.0-52.0) H 07/11/25 09:28
Plt Count 306 10^3/uL (130-400) 07/11/25 09:28
Abs Immat Gran (auto) 1.9 10^3/uL (0-0.05) H 07/11/25 05:38
Neutrophils % 79.8 % (42.2-75.2) H 07/11/25 05:38
Physical Exam
General: Intubated
GI: Soft
Musculoskeletal: Other (BLE mottled, RUE cyanotic, edematous with tense forearm compartments. No palpable radial pulse, no doppler signal.)
Data Reviewed
-
CT Scan: Image Personally Visualized and interpreted, Report Reviewed by me and Discussed with Physician
Labs: Labs Reviewed by me and Discussed with Physician
Assessment / Plan
-
49M found down with suspected RUE compartment syndrome
Critically ill in the ICU currently intubated with a white blood cell count of 46,000, lactic acid 14.7, troponin 3.3. CK is greater than 120,000.
Intubated, sedated.
RUE exam concerning as noted above
CT scan with slowly tapered diminutive flow in the proximal brachial artery. The muscle compartments all appear fairly edematous.
Plan:
Transfer patient to tertiary [facility] for further care
Nothing to offer at this time from Gen Surg perspective
Pls call with questions
[2025-07-11] MEDS: ZOSYN 50 IV (13:47)
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
[2025-07-11] MEDS: SOLU-CORTEF 50 MG IV (15:25)
[2025-07-11] MEDS: VANCOCIN 540 MG IV (15:26)
[2025-07-11] MEDS: CLEOCIN 50 IV (15:26)
--- NOTE | 2025-07-11 15:34 | CON.NEURO4 ---
Addendum entered and electronically signed by Atul Lei MD 07/11/25 20:42:
The patient was seen and examined today on 07/11/2025, along with the nurse practitioner Sofiya Maldonado, and I agree with her assessment and management plan. Given below is my addendum.
This is a 49-year-old male who has presented to the hospital on 07/11/25 with report of unresponsiveness. Patient is unresponsive and this information is obtained from medical records. Patient has a history of methamphetamine abuse and was found
unresponsive by his parents in their barn last night at 2330. EMS were called at 0400 this morning after he failed to become more responsive. He was intubated en route to the hospital.
Unresponsiveness in the setting of drug abuse. CT head is suggestive of a cerebral venous sinus thrombosis. There is also concern for anoxic brain injury contributing to altered mental status. WBC count 46.9 on arrival, lactic acid 14.7, troponin
3.3, CK >648325. Drug screen is positive for methamphetamines. CT head was obtained and is suggestive of an intracerebral venous thrombosis. Heparin drip was initiated. Patient is currently unresponsive and intubated in the ICU.
Recommendations:
-Continue heparin drip.
-CT venogram pending. Unable to obtain MRV due to acuity of the medical condition.
-Eventual MRI brain without contrast when patient is stable.
-Neurological checks per unit guidelines.
Discussed with ICU staff.
Original Note:
Consultation - Neurology 4
-
CONSULTING PHYSICIAN: Atul Lei MD
REFERRING PHYSICIAN: Hospitalists/Dr. Stuart MD Resident
DICTATED BY: SARAI Mack
DATE/TIME OF REQUEST: 07/11/25
DATE/TIME OF CONSULTATION: 07/11/25
Reason for Consultation: Concern for venous sinus thrombosis
History of Present Illness:
This is a 49-year-old male who has presented to the hospital on 07/11/25 with report of unresponsiveness. Patient is unresponsive and this information is obtained from medical records. Patient has a history of methamphetamine abuse and was found
unresponsive by his parents in their barn last night at 2330. EMS were called at 0400 this morning after he failed to become more responsive. He was intubated en route to the hospital. WBC count 46.9 on arrival, lactic acid 14.7, troponin 3.3, CK
>127601, ABG with metabolic acidosis. Drug screen is positive for methamphetamines. CT head was obtained and is suggestive of an intracerebral venous thrombosis. Heparin drip was initiated. Patient is currently unresponsive and intubated in the ICU.
Past Medical History: Unknown.
Surgical History: Unknown.
Family History: Reviewed and noncontributory.
Social History: Methamphetamine abuse. Occasional alcohol.
Allergies: No known allergies.
Home Medications: See below.
Review of Symptoms:
Per the HPI. I am unable to obtain a complete review of systems�because of patient's inability to provide history.
Physical Exam:
The patient is febrile, abdomen is nondistended, breathing is unlabored on mechanical ventilation, RUE is cold, purple with +2 edema.
Neurologic Examination:
The patient is unresponsive. No eye opening. Left corneal is strong, right corneal is severely diminished. On cranial nerve assessment, left pupil is 3 mm, round and reactive to light and accommodation, right pupil is 2, round, and sluggish.
+cough/gag. AUR[place]A visual ivory and EOMS, no gaze deviation. There is no apparent facial asymmetry. [place] hearing. [place] tongue. To pain, all extremities are 0/5. No involuntary movement noted. Deep tendon reflexes are 1+ bilateral upper and lower
extremities and Babinski is absent bilaterally. [place]A sensation, double simultaneous, and coordination.
Lab Results: See below.
Neuro Imaging:
1. CT Head 07/11/25: High attenuation within a mildly distended tortuous extra-axial blood vessel located along the inferior margin of the right frontal lobe extending posteriorly into the right perimesencephalic cistern most suggestive of
intracerebral venous thrombosis. No CT evidence for acute intracranial hemorrhage or transcortical infarct. Mucous retention cysts in the right maxillary sinus.
Differentials for the patient's presentation include:
1. Unresponsiveness in the setting of drug abuse. CT head is suggestive of a cerebral venous sinus thrombosis. There is also concern for anoxic brain injury and/or embolic infarcts contributing to altered mental status.
Patient has the following risk factors for their symptoms: Drug abuse.
Recommendations:
-Continue heparin drip.
-CT venogram pending. Unable to obtain MRV due to acuity.
-Eventual MRI brain without contrast when patient is stable.
-Neurological checks per unit guidelines.
Discussed patient care with: Dr. Lei, ICU
Vital Signs and Labs
-
Vital Signs and Labs:
Vital Signs
Temp Pulse Resp BP Pulse Ox
101.8 F H 106 36 96/51 78
07/11/25 13:44 07/11/25 12:45 07/11/25 12:45 07/11/25 12:02 07/11/25 12:15
Lab Results
07/11/25 09:28
07/11/25 12:45
PT 14.5 Sec (11.4-14.6) 07/11/25 05:38
INR 1.10 07/11/25 05:38
APTT Cancelled 07/11/25 09:26
Sodium Cancelled 07/11/25 12:45
Potassium Cancelled 07/11/25 12:45
BUN Cancelled 07/11/25 12:45
Glucose Cancelled 07/11/25 12:45
Calcium Cancelled 07/11/25 12:45
Ur Buprenorphine Negative (Negative) 07/11/25 05:38
Medications
-
Active Medications
Generic Name Dose Route Start Last Admin
Trade Name Freq PRN Reason Stop Dose Admin
Dextrose 12.5 grams 07/11/25 12:00
Dextrose 50% (0.5 Grams/Ml) 50 Ml Syringe IV 08/08/25 11:59
[id number] PRN
hypoglycemia
Protocol
Fentanyl Citrate 50 mcg 07/11/25 12:00 07/11/25 14:01
Fentanyl (50 Mcg/Ml) 100 Mcg/2 Ml Ampul IV 07/25/25 11:59 50 mcg
[id number] PRN Administration
see protocol
Protocol
Glucagon 1 mg 07/11/25 12:00
Glucagon 1 Mg Vial IM 08/08/25 11:59
PRN PRN
hypoglycemia - no IV access
Protocol
Heparin Sodium 8,200 units 07/11/25 09:39
Heparin 80 Units/Kg Iv Rebolus IV 08/08/25 09:38
PRN PRN
PTT < OR = 64 seconds
Heparin Sodium 4,100 units 07/11/25 09:39
Heparin 40 Units/Kg Iv Rebolus IV 08/08/25 09:38
PRN PRN
PTT = 64.1 to 72.9 seconds
Hydrocortisone Sodium Succinate 50 mg 07/11/25 20:00
Hydrocortisone Sodium Succinate 100 Mg/2 Ml Vial IV 08/08/25 19:59
Q6H MALINA
Propofol 1,000,000 mcg in 100 mls @ 0 mls/hr 07/11/25 08:45 07/11/25 08:42
Diprivan IV 100 mls
PER PROTOCOL MALINA Administration
Protocol
Per Protocol
Heparin Sodium 25,000 units in 250 mls @ 0 mls/hr 07/11/25 09:15 07/11/25 10:33
Heparin 73093 Units/250 Ml IV 250 mls
PER PROTOCOL MALINA Administration
Protocol
Per Protocol
Piperacillin Sod/Tazobactam Sod 2.25 grams in 50 mls @ 100 mls/hr 07/11/25 14:00 07/11/25 13:47
Zosyn IV 50 mls
Q6H MALINA Administration
Sodium Bicarbonate 150 meq/ 1,150 mls @ 200 mls/hr 07/11/25 11:00 07/11/25 11:49
Sterile Water IV 1,150 mls
.Q5H45M MALINA Administration
Norepinephrine Bitartrate 8 mg 258 mls @ 0 mls/hr 07/11/25 11:30 07/11/25 12:44
/ Sodium Chloride IV 258 mls
PER PROTOCOL MALINA Administration
Protocol
Per Protocol
Phenylephrine HCl 100 mg/ 260 mls @ 0 mls/hr 07/11/25 11:30 07/11/25 12:45
Sodium Chloride IV 260 mls
PER PROTOCOL MALINA Administration
Protocol
Per Protocol
Vancomycin HCl 1 each/ Device 0 mls @ 0 mls/hr 07/11/25 15:10
IV
PER PROTOCOL MALINA
As Directed
Clindamycin HCl/Dextrose 600 mg in 50 mls @ 100 mls/hr 07/11/25 15:13 07/11/25 15:26
Cleocin IV 07/11/25 15:42 50 mls
NOW STA Administration
Clindamycin Phosphate 600 mg/ 54 mls @ 104 mls/hr 07/12/25 00:00
Sodium Chloride IV
Q8H MALINA
Vancomycin HCl 2,000 mg/ 540 mls @ 270 mls/hr 07/11/25 15:15 07/11/25 15:26
Sodium Chloride IV 07/11/25 17:14 540 mls
NOW STA Administration
Insulin Aspart 0 units 07/11/25 12:00 07/11/25 12:28
Insulin Aspart Moderate Resistance 300 Units/3 Ml Pen.Injctr SC 08/08/25 11:59 Not Given
Q6 MALINA
Protocol
Pantoprazole Sodium 40 mg 07/11/25 12:00 07/11/25 12:11
Protonix 40 Mg Iv Push IV 08/08/25 11:59 40 mg
DAILY MALINA Administration
Polyethylene Glycol 17 grams 07/12/25 08:00
Polyethylene Glycol Powder 17 Grams Packet TUBE 08/09/25 07:59
DAILY MALINA
Sodium Chloride 0 flush 07/11/25 09:00
Sodium Chloride 0.9% (Flush) Syringe IV 08/08/25 08:59
PER PROTOCOL MALINA
Sodium Chloride 10 ml 07/11/25 12:00 07/11/25 12:12
Sodium Chloride 0.9% (Preservative Free) 10 Ml Vial IV 08/08/25 11:59 10 ml
DAILY MALINA Administration
Home Medications
�Medication �Instructions �Recorded
No Meds [No Current Medications] 07/11/25
--- NOTE | 2025-07-11 15:40 | CM ---
Patient seen at bedside with sister in law present in ICU. Per nursing review patient is for transfer to [facility] when bed available. Patient lives with his parents in a one story home with sister in law unsure of PCP or pharmacy. Patient was independent
of adl's and iadl's prior to admission. Patient currently intubated. CM will continue to follow for discharge planning needs.
Plan; transfer to [facility] pending medical treatment plan
--- NOTE | 2025-07-11 16:18 | CHAP ---
Emotional and spiritual support offered to family (father, brother, [id number]) at bedside. Prayers shared.
[2025-07-11 16:54] LABS: B.E. -16.6 mmol/L; O2 Saturation % 99.8 % (94-98); PCO2 28 mmHg (35-48); PO2 178 mmHg (83-108); Sodium 121 mMOL/L (136-145)
[2025-07-11 16:59] LABS: HCO3 10.2 mmol/L (21-28); Potassium 9.1 mMOL/L (3.5-5.1)
[2025-07-11 17:33] LABS: APTT > 200 Sec (23.4-35.0)
[2025-07-11 17:40] LABS: Glucose - Point of Care 45 mg/dl (70-99)
[2025-07-11 17:56] LABS: Glucose - Point of Care 139 mg/dl (70-99)
--- NOTE | 2025-07-11 18:24 | W.SUR.POST ---
Surgical Immediate Post Op
Note
Arterial Catheter Insertion Procedure
Date of procedure: 07/11/2025
Pre Op Diagnosis: Circulatory shock on multiple vasopressors
Post Op Diagnosis: Same as above
Procedure Performed: Arterial catheter insertion
Primary proceduralist: Dr. Coiln
Secondary proceduralist: N/A
Anesthesia: Local 1% lidocaine
Estimated Blood Loss: 10 cc
Fluids: N/A
Drains/Shunts: N/A
Specimens/Cultures: N/A
Doppler/Duplex/Angio (Y/N): N/A
Complications: No immediate complications
Operative Findings: Consent not obtained given the emergent nature of this procedure. The patient was positioned with his left lower extremity externally rotated to allow easy access to his left-sided inguinal region. Palpable femoral pulse
identified. Sterile technique was employed with handwashing, cap, gown, face mask and sterile gloves. The left femoral artery site was cleaned with a ChloraPrep. Ultrasound guidance was utilized to identify the patent femoral artery which had good
pulsatility. Trochar was inserted and advanced slowly under sterile ultrasound guidance until pulsatile blood was observed. Guidewire was advanced through the trochar and the trochar was removed. Small incision was made at the guidewire/skin
site, and the arterial catheter was inserted over the guidewire until the catheter was advanced to the hub at the skin, and then the guidewire was removed entirely. Arterial catheter was attached to the tubing with appropriate waveform seen.
Arterial line was secured into place using a straight needle suture. Insertion site covered with a Biopatch and the entire catheter was then covered with a Tegaderm. There were no immediate complications.
--- NOTE | 2025-07-11 18:28 | PTCARENOTE ---
BROTHER KONRAD CALLED AND WAS GIVEN UPDATE.
--- NOTE | 2025-07-11 18:58 | PTCARENOTE ---
Pt to be transferred to MICU at [facility]. Report provided to Rosetta IRAHETA at [facility]. Pick-up time initially for 11pm but working on getting sooner pick-up
--- NOTE | 2025-07-11 19:01 | PTCARENOTE ---
Updated Rosetta RN @ [facility] regarding Pt - Transport arrived and prepped pt for travel. Informed that team would be leaving soon. Also updated nurse with changes: Heparin on hold, treated K of 9.1 with Dextrose/Insulin/Calcium/Bicarb, and
new A-Line placed in L fem.
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
== END 2025-07-11 18:58 | disposition short-term general hospital (02) | DRG 871 ==
LOC: ICU 08:05
PROVIDERS: Radiology Vascular & Interventional Radiology; Student in an Organized Health Care Education/Training Program; ADMITTING PHYSICIAN Internal Medicine; CONSULT PHYSICIAN Internal Medicine Critical Care Medicine; CONSULT PHYSICIAN Orthopaedic Surgery; CONSULT PHYSICIAN Psychiatry & Neurology Neurology; CONSULT PHYSICIAN Specialist; EMERGENCY PHYSICIAN Student in an Organized Health Care Education/Training Program; OTHER PHYSICIAN Surgery; OTHER PHYSICIAN Surgery Vascular Surgery
PROC: BP2T1ZZ Computerized Tomography (CT Scan) of Right Upper Extremity using Low Osmolar Contrast (ICD-10-PCS; 2025-07-11)
PROC: 4A133B1 Monitoring of Arterial Pressure, Peripheral, Percutaneous Approach (ICD-10-PCS; 2025-07-11)
DX: A41.9 Sepsis, unspecified organism (principal); G08 Intracranial and intraspinal phlebitis and thrombophlebitis; J96.01 Acute respiratory failure with hypoxia; R65.21 Severe sepsis with septic shock; J96.02 Acute respiratory failure with hypercapnia; N17.9 Acute kidney failure, unspecified; J98.11 Atelectasis; E87.4 Mixed disorder of acid-base balance; I24.89 Other forms of acute ischemic heart disease; G95.29 Other cord compression; T79.A11A Traumatic compartment syndrome of right upper extremity, initial encounter; Z99.11 Dependence on respirator [ventilator] status; T79.6XXA Traumatic ischemia of muscle, initial encounter; X58.XXXA Exposure to other specified factors, initial encounter; F15.10 Other stimulant abuse, uncomplicated; S43.004A Unspecified dislocation of right shoulder joint, initial encounter; E86.1 Hypovolemia; D75.1 Secondary polycythemia; E86.0 Dehydration; E87.5 Hyperkalemia; F17.200 Nicotine dependence, unspecified, uncomplicated; M48.02 Spinal stenosis, cervical region; Z79.899 Other long term (current) drug therapy
CPT/HCPCS: 31500; 36556; 36600; 70450; 71260; 72125; 73206; 74177; 80048; 80143; 80179; 80306; 80307; 81003; 81015; 82077; 82140; 82330; 82375; 82550; 82805; 82962; 83050; 83605; 83735; 84132; 84302; 84478; 84484; 85025; 85027; 85610; 85730; 86850; 86900; 86901; 87040; 87641; 93005; 94002; 96365; 96375; 99291; Q9967